=== PATIENT | male | born 1985 | race Two or more races ===

== ENCOUNTER 2021-05-23 14:20 | Outpatient (CLI) | payer OTHER ==
--- NOTE | 2021-05-23 18:07 | XRAY Report ---
PROCEDURE: Toe(s) RT INDICATIONS: TOE FRACTURE TECHNIQUE: 3 views of the right fourth toe(s) acquired. COMPARISON: None FINDINGS: Bones: Mildly displaced transverse fracture of the right fourth proximal phalange. Soft tissues: No suspicious soft tissue densities. IMPRESSION: Right fourth proximal phalange fracture. Reviewed by: Daniela Ascencio MD, PhD on 05/23/2021 6:05 PM PDT Approved by: Daniela Ascencio MD, PhD on 05/23/2021 6:05 PM PDT Station ID: [id number]
== END 2021-05-23 14:21 | disposition home or self-care (01) ==
LOC: DI.N 14:20
PROVIDERS: ATTEND Internal Medicine
DX: S92.511A Displaced fracture of proximal phalanx of right lesser toe(s), initial encounter for closed fracture (principal)